=== PATIENT | male | born 1960 ===

== ENCOUNTER → 2024-05-09 10:38 | Outpatient (CLI) | payer OTHER, SELFPAY ==
--- NOTE | 2024-05-09 | DI.RAD.S_ITS ---
PROCEDURE: XR CHEST 2V INDICATIONS: Atelectasis TECHNIQUE: 2 views of the chest were acquired. COMPARISON: None. FINDINGS: Surgical changes and devices: None. Lungs and pleura: Lungs are clear. No pleural effusions or pneumothorax. Mediastinum: Mediastinal contours are normal. Heart size is normal. Bones and chest wall: No suspicious bony abnormalities. Soft tissues appear unremarkable. IMPRESSION: No acute pulmonary process. Dictated by: Marianne Pennington M.D. on 05/09/2024 at 16:07 Approved by: Marianne Pennington M.D. on 05/09/2024 at 16:12
== END ==
LOC: RESP 10:40
PROVIDERS: Referring Provider Chiropractor; Visit Provider Chiropractor
DX: J98.11 Atelectasis (principal); Z87.891 Personal history of nicotine dependence
CPT/HCPCS: 71046; 94060